=== PATIENT | male | born 1980 | race Two or more races ===

== ENCOUNTER 2018-11-22 11:38 | Emergency (ER) | payer SELFPAY ==
[~2018-11-22] VITALS: Ht 165.1 cm; Wt 68.0 kg
[2018-11-22] MEDS ORDERED: IV NORMAL SALINE 1000ML BAG 1,000 ML IV SCH (13:14)
--- NOTE | 2018-11-22 13:21 | PHYS DOC ---
Past Medical History Past Medical History: No Pertinent History Past Surgical History: No Surgical History Smoking: Cigarettes (The patient is a nonsmoker.) Alcohol Use: Occasionally Drug Use: None Adult General Chief Complaint Chief Complaint: HEADACHE HPI HPI Patient is a 38-year-old previously healthy male who presents to the emergency department for evaluation. He states that he had the gradual onset of a left-sided headache 5 days ago and has had a persistent headache since that t flora. He denies any vision changes, mental status changes, fevers, neck pain or stiffness, or focal weakness. He reports paresthesias in his hands and feet bilaterally, but no other sensory changes. He denies any injuries. There are no alleviating or exacerbating factors to his symptoms. He has taken Tylenol without improvement in his symptoms. 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 Review of Systems Review of Systems Constitutional: Denies fever or chills [] Eyes: Denies change in visual acuity, redness, or eye pain [] HENT: Denies nasal congestion or sore throat , denies otalgia[] Respiratory: Denies cough or shortness of breath [] Cardiovascular:The patient denies any shortness of breath, chest pain, palpita tions, or orthopnea [] GI: Denies abdominal pain, nausea, vomiting, bloody stools or diarrhea [] : Denies dysuria or hematuria [] Musculoskeletal: Denies back pain or joint pain [] Integument: Denies rash or skin lesions [] Neurologic: Denies focal weakness or sensory changes except as noted in the history of present illness [] Endocrine: Denies polyuria or polydipsia [] All other systems were reviewed and found to be within normal limits, except as documented in this note. Current Medications Current Medications Current Medications Medications (Trade) Dose Ordered Sig/Avinash Start Time Stop Time Status Last Admin Dose Admin Acetaminophen (Tylenol) 1,000 mg 1X ONCE 11/22/18 13:30 11/22/18 13:31 DC 11/22/18 13:48 1,000 MG Sodium Chloride 1,000 ml @ 1,000 mls/hr Q1H 11/22/18 13:14 11/22/18 14:13 DC 11/22/18 13:47 1,000 MLS/HR Allergies Allergies Allergies Coded Allergies Type Severity Reaction Last Updated Verified No Known Drug Allergies 11/22/18 No Physical Exam Physical Exam PHYSICAL EXAM: CONSTITUTIONAL: Well developed, well nourished HEAD: normocephalic, atraumatic. There is no reproducible tenderness to palpation to the head or scalp. EENT: PERRL, EOMI. Conjunctivae normal color, sclerae non-icteric; moist mucous membranes. Tympanic membranes are normal bilaterally. There is no mastoid tenderness to palpation. NECK: Supple, non-tender; no meningismus. LUNGS: Lungs CTA, breathing even and unlabored. Normal air movement. HEART: Regular rate and rhythm, no murmur CHEST: No deformity; non-tender ABDOMEN: The abdomen is soft, and non-tender, no masses or bruits. EXTREM: Normal ROM; no deformity, no calf tenderness. Normal pulses palpable in all extremities. There is no pedal edema. SKIN: No rash; no diaphoresis NEURO: Alert; normal speech and cognition; CN's grossly intact; strength grossly intact without focal deficit. Visual hines are intact by confrontation. [id number] and heel mortensen testing is normal. BACK: No CVA TTP. Current Patient Data Vital Signs Vital Signs Date Time Temp Pulse Resp B/P (MAP) Pulse Ox O2 Delivery O2 Flow Rate FiO2 11/22/18 14:18 77 16 98 11/22/18 12:35 98.1 153/99 (117) Room Air 98.1 Lab Values Laboratory Tests Test 11/22/18 13:20 White Blood Count 5.6 x10^3/uL (4.0-11.0) Red Blood Count 5.76 x10^6/uL (4.30-5.70) H Hemoglobin 18.4 g/dL (13.0-17.5) H Hematocrit 53.7 % (39.0-53.0) H Mean Corpuscular Volume 93 fL (79-100) Mean Corpuscular Hemoglobin 32 pg (25-35) Mean Corpuscular Hemoglobin Concent 34 g/dL (31-37) Red Cell Distribution Width 13.9 % (11.5-14.5) Platelet Count 235 x10^3/uL (140-400) Neutrophils (%) (Auto) 68 % (31-73) Lymphocytes (%) (Auto) 23 % (24-48) L Monocytes (%) (Auto) 7 % (0-9) Eosinophils (%) (Auto) 1 % (0-3) Basophils (%) (Auto) 1 % (0-3) Neutrophils # (Auto) 3.8 x10^3/uL (1.8-7.7) Lymphocytes # (Auto) 1.3 x10^3/uL (1.0-4.8) Monocytes # (Auto) 0.4 x10^3/uL (0.0-1.1) Eosinophils # (Auto) 0.0 x10^3/uL (0.0-0.7) Basophils # (Auto) 0.0 x10^3/uL (0.0-0.2) Erythrocyte Sedimentation Rate 1 (0-15) D-Dimer (Li) < 0.27 ug/mlFEU Sodium Level 138 mmol/L (136-145) Potassium Level 4.5 mmol/L (3.5-5.1) Chloride Level 102 mmol/L (98-107) Carbon Dioxide Level 28 mmol/L (21-32) Anion Gap 8 (6-14) Blood Urea Nitrogen 11 mg/dL (8-26) Creatinine 1.0 mg/dL (0.7-1.3) Estimated GFR (Cockcroft-Gault) 83.2 BUN/Creatinine Ratio 11 (6-20) Glucose Level 121 mg/dL (70-99) H Calcium Level 9.9 mg/dL (8.5-10.1) Total Bilirubin 0.4 mg/dL (0.2-1.0) Aspartate Amino Transferase (AST) 18 U/L (15-37) Alanine Aminotransferase (ALT) 20 U/L (16-63) Alkaline Phosphatase 105 U/L (46-116) C-Reactive Protein, Quantitative < 0.5 mg/L (0-3.3) Total Protein 8.8 g/dL (6.4-8.2) H Albumin 4.0 g/dL (3.4-5.0) Albumin/Globulin Ratio 0.8 (1.0-1.7) L Laboratory Tests 11/22/18 13:20 Laboratory Tests 11/22/18 13:20 EKG EKG [] Radiology/Procedures Radiology/Procedures PROCEDURE: CT HEAD WO CONTRAST Exam performed: CT scan of the head without contrast. Date of Service: 11/22/2018. Comparison: None available. Clinical History: Headache for one week. Technique: Helical acquisitions are obtained from the foramen magnum to the vertex without intravenous administration of contrast. Findings: The ventricles are midline without evidence of dilatation. Normal holland-white differentiation is maintained. There is no extra axial fluid collection, intraparenchymal hemorrhage or mass lesion. The visualized portions of the orbits, paranasal sinuses and the mastoid air cells appear clear. The calvarium is intact. Impression: 1. No acute intracranial process detected. [] Course & Med Decision Making Course & Med Decision Making Pertinent Labs and Imaging studies reviewed. (See chart for details) []3:35 PM: The patient's condition remains stable. I discussed doing a lumbar puncture with the patient. We discussed the limitations of CT in definitively ruling out subarachnoid hemorrhage, or ruling out meningitis, I discussed the potential life-threatening nature of these diagnoses. The patient expressed verbal understanding of the risks involved in potentially missing these diagnoses. After considering the risks/benefits of lumbar puncture, and answering all questions about the procedure, the patient declined to undergo a lumbar puncture. The patient was mentally competent, and all questions were addressed. I stressed the need to return to the emergency department for worsening symptoms, or if the patient is willing to undergo further evaluation. The patient expressed verbal understanding. I did discuss importance of close outpatient neurology follow-up. The above discussion was had via [place]cu[place]orean translation services of [employer]. Louis Disclaimer Dragon Disclaimer This electronic medical record was generated, in whole or in part, using a voice recognition dictation system. Departure Departure Impression: Primary Impression: Headache Disposition: HOME, SELF-CARE Condition: STABLE Referrals: MELANI SOTO MD Patient Instructions: General Headache Without Cause Additional Instructions: Tylenol as needed for pain. MARIAN TANG MD Nov 22, 2018 13:21
[2018-11-22] MEDS ORDERED: ACETAMINOPHEN 500 MG TABLET PO ONE (13:30)
[2018-11-22 13:35] LABS: ANION GAP 8 (6-14); BASO % 1 % (0-3); BLOOD UREA NITROGEN 11 mg/dL (8-26); BUN/CREATININE RATIO 11 (6-20); CALCIUM 9.9 mg/dL (8.5-10.1); CARBON DIOXIDE 28 mmol/L (21-32); CHLORIDE 102 mmol/L (98-107); EOS % 1 % (0-3); GFR 83.2; GLUCOSE 121 mg/dL (70-99); HEMATOCRIT 53.7 % (39.0-53.0); HEMOGLOBIN 18.4 g/dL (13.0-17.5); LYMPH # 1.3 x10^3/uL (1.0-4.8); LYMPH % 23 % (24-48); MEAN CORPUSCULAR HEMOGLOBIN 32 pg (25-35); MEAN CORPUSCULAR HGB CONC 34 g/dL (31-37); MEAN CORPUSCULAR VOLUME 93 fL (79-100); MONO # 0.4 x10^3/uL (0.0-1.1); MONO % 7 % (0-9); NEUT # 3.8 x10^3/uL (1.8-7.7); NEUT % 68 % (31-73); PLATELET COUNT 235 x10^3/uL (140-400); POTASSIUM 4.5 mmol/L (3.5-5.1); RED BLOOD COUNT 5.76 x10^6/uL (4.30-5.70); RED CELL DISTRIBUTION WIDTH 13.9 % (11.5-14.5); SODIUM 138 mmol/L (136-145); WHITE BLOOD COUNT 5.6 x10^3/uL (4.0-11.0)
[2018-11-22 13:41] LABS: ALBUMIN/GLOBULIN RATIO 0.8 (1.0-1.7); ALK PHOS 105 U/L (46-116); ALT (SGPT) 20 U/L (16-63); AST (SGOT) 18 U/L (15-37); TOTAL BILIRUBIN 0.4 mg/dL (0.2-1.0); TOTAL PROTEIN 8.8 g/dL (6.4-8.2)
[2018-11-22 13:46] LABS: C-REACTIVE PROTEIN < 0.5 mg/L (0-3.3)
--- NOTE | 2018-11-22 13:50 | RAD ---
Exam performed: CT scan of the head without contrast. Date of Service: 11/22/2018. Comparison: None available. Clinical History: Headache for one week. Technique: Helical acquisitions are obtained from the foramen magnum to the vertex without intravenous administration of contrast. Findings: The ventricles are midline without evidence of dilatation. Normal holland-white differentiation is maintained. There is no extra axial fluid collection, intraparenchymal hemorrhage or mass lesion. The visualized portions of the orbits, paranasal sinuses and the mastoid air cells appear clear. The calvarium is intact. Impression: 1. No acute intracranial process detected. PQRS Compliance Statement: One or more of the following individualized dose reduction techniques were utilized for this examination: 1. Automated exposure control 2. Adjustment of the mA and/or kV according to patient size 3. Use of iterative reconstruction technique Electronically signed by: Christine Brito MD (11/22/2018 1:47 PM) [facility]
[2018-11-22 14:18] VITALS: BP 144/92
[2018-11-22] MEDS ORDERED: DICL50TA4 PO (16:09)
== END 2018-11-22 16:10 | disposition home or self-care (01) ==
LOC: ER 11:38
DX: R51 Headache (principal); R20.2 Paresthesia of skin
CPT/HCPCS: 36415; 70450; 80053; 85025; 85379; 85651; 86140; 99285; J7030